=== PATIENT | male | born 1980 | race Caucasian/White ===

== ENCOUNTER 2022-12-17 11:50 | Outpatient (REF) | payer OTHER, SELFPAY | END 2022-12-17 11:51 | disposition home or self-care (01) | LOC: HO.BBR 11:50 | PROVIDERS: PCP Internal Medicine; Visit Provider General Practice | DX: D75.1 Secondary polycythemia (principal) | CPT/HCPCS: 85014; 85018; 99195 ==

== ENCOUNTER 2023-07-25 07:54 | Outpatient (REF) | payer OTHER, SELFPAY | END 2023-07-25 07:55 | disposition home or self-care (01) | LOC: HO.BBR 07:54 | PROVIDERS: PCP Internal Medicine; Visit Provider General Practice | DX: D75.1 Secondary polycythemia (principal) | CPT/HCPCS: 85018; 99195 ==

== ENCOUNTER 2023-10-24 08:03 | Outpatient (REF) | payer OTHER, SELFPAY | END 2023-10-24 08:04 | disposition home or self-care (01) | LOC: HO.BBR 08:03 | PROVIDERS: Visit Provider General Practice | DX: D75.1 Secondary polycythemia (principal) | CPT/HCPCS: 85014; 85018; 99195 ==

== ENCOUNTER 2024-04-28 09:03 | Outpatient (REF) | payer OTHER, SELFPAY | END 2024-04-28 09:04 | disposition home or self-care (01) | LOC: HO.BBR 09:03 | PROVIDERS: PCP Internal Medicine; Visit Provider General Practice | DX: D75.1 Secondary polycythemia (principal) | CPT/HCPCS: 85018; 99195 ==

== ENCOUNTER 2024-06-09 18:30 | Emergency (ER) | payer OTHER, SELFPAY ==
--- NOTE | ~2024-06-09 | XR_ITS ---
EXAMINATION: XR FOOT, LEFT CLINICAL INFORMATION: Pain, injury. COMPARISON: None available. TECHNIQUE: AP, lateral, and oblique views of the left foot. FINDINGS: No acute fracture or subluxation. No erosive changes. No unusual soft tissue calcifications or unexpected radiopaque foreign bodies. Nonspecific diffuse soft tissue thickening/swelling. XR/XR foot LT min 3V IMPRESSION: 1. No acute fracture or malalignment. 2. Nonspecific diffuse soft tissue thickening/swelling.
[2024-06-09 19:45] VITALS: BP 151/85; PULSE 80; RESP 18; TEMP 36.8; O2SAT 97; BMI 32.8
--- NOTE | 2024-06-09 19:47 | ED_ITS ---
HPI - Extremity Injury (Lower) General Chief Complaint: Extremity Injury, Lower Stated Complaint: L foot pain Time Seen by Provider: 06/09/24 21:04 Source: patient Mode of arrival: ambulatory Limitations: no limitations History of Present Illness ED Provider: IZA PRATT Narrative: 43 yo male playing soccer accidentally kicked ground with L foot since then pain and swelling limited ROM of foot. No other injuries. Did try to keep off of it. MD complaint: foot injury Onset (ago): day(s) (1) Injury: Left: foot Type of Injury: blunt Place: other (soccer field) Severity: moderate Relieving factors: nothing Exacerbating factors: weight bearing, movement and palpation Context: direct blow Associated symptoms: swelling Other symptoms: none Related Data Allergies Allergy/AdvReac Type Severity Reaction Status Date / Time bees Allergy Severe Anaphylaxis Uncoded 06/09/24 19:47 Review of Systems Review of Systems: Constitutional : No Fever, No Chills ENT/Mouth : No Ear Pain, No Hoarseness, No sore throat Eyes: No Eye Pain, No Swelling, No Redness, No Foreign Body Cardiovascular : No Chest Pain, No SOB Respiratory : No Cough, No Dyspnea Gastrointestinal : No Nausea, No Vomiting, No Diarrhea, No abdominal Pain Musculoskeletal : positive joint pain, No Myalgias, pos Joint Swelling Skin : No Skin lacerations, No rash Neuro : No Weakness, No Numbness, No Loss of Consciousness, No Dizziness, No Headache All other systems reviewed and are negative [facility] Past Medical History Attestation statement: The following information was validated with the patient. Source: old records reviewed Medical History No pertinent past medical history Social History Social History Smoked in Last 30 Days: No Use of substances other than those prescribed or required for medical reasons: No Advance Directives: No Advance Directives Information Provided: No Do you have a plan to hurt others: No Plan Physical Exam Vital Signs: Vital Signs: Last Vital Signs Temp 98.2 F 06/09/24 21:10 Pulse 77 06/09/24 21:10 Resp 17 06/09/24 21:10 BP 138/91 H 06/09/24 21:10 Pulse Ox 98 06/09/24 21:10 O2 Del Method Room Air 06/09/24 21:10 BMI result Body Mass Index 32.8 Appearance: Alert. Oriented X3. No acute distress. Eyes: Pupils equal, round and reactive to light. ENT: Pharynx normal. Neck: Normal inspection. Neck supple. CVS: Pulses normal. Respiratory: No respiratory distress. Abdomen: atraumatic Skin: Skin warm and dry. Normal skin color. . Extremities: No lower extremity edema. L foot ttp on dorsum SILT intact 2+ DP pulse achilles intact no ttp pain with movement of L foot with rotation Neuro: Oriented X 3. No motor deficit. No sensory deficit. Course Course Course Narrative: This is a Rapid Medical Examination (RME) performed by Wyatt Gonzalez PA-C in triage. Full HPI, ROS, assessment and treatment plan per primary provider in the Main ED. 43 yo male presents to the ER for evaluation of left foot pain after he accidentally kicked the floor yesterday while playing soccer. pain 7/10, not improved w/ motrin, tylenol, ice. limping and swollen since last night Plan: XR left foot Medical Decision Making Medical Decision Making [facility] Narrative: 43 yo male with no sig PMH here with c/o L foot pain after kicking soccer field at this time will need xrays he is NV intact overall not toxic - xrays ordered, nestor wrap and crutches - strain, contusion, fracture Differential Diagnosis Differential Diagnoses: The differential diagnosis associated with the presentation includes strain, contusion, fracture Independent Interpretation I performed an independent interpretation of an: Plain X-Ray (no fracture) Radiology Impression Discussion of test interpretation with radiology: I have reviewed the radiologist's reading. Prescription Management I considered prescription management with: Pain Medication Discharge Plan Discharge Clinical Impression: Foot sprain Qualifiers: Encounter type: initial encounter Laterality: left Qualified Code(s): S93.602A - Unspecified sprain of left foot, initial encounter Patient Disposition: Home, Self-Care Instructions: Foot Sprain (ED) Additional Instructions: rest ice compress elevated for 3 days use motrin or tylenol for 3 days nestor wrap for 5 days crutches for 5 days if not improved in 5 days repeat xrays with doctor return for numbness, worsening redness, swelling or any other concerns no obvious fracture on xray FINDINGS: No acute fracture or subluxation. No erosive changes. No unusual soft tissue calcifications or unexpected radiopaque foreign bodies. Nonspecific diffuse soft tissue thickening/swelling. XR/XR foot LT min 3V IMPRESSION: 1. No acute fracture or malalignment. 2. Nonspecific diffuse soft tissue thickening/swelling. Print Language: Paraguayan
[2024-06-09 21:10] VITALS: BP 138/91; PULSE 77; RESP 17; TEMP 36.8; O2SAT 98
--- NOTE | 2024-06-09 21:42 | PC.NURSE ---
Provider to bedside for primary eval, left foot wrapped with nestor wrap and crutches and crutch teaching provided by Alla PCT. Awaiting dispo.
[2024-06-09 22:15] VITALS: BP 138/91; PULSE 72; RESP 17; TEMP 36.8; O2SAT 98
== END 2024-06-09 22:16 | disposition home or self-care (01) ==
PROVIDERS: Emergency Provider Emergency Medicine; PCP Internal Medicine
DX: S93.602A Unspecified sprain of left foot, initial encounter (principal); M79.672 Pain in left foot; Y29.XXXA Contact with blunt object, undetermined intent, initial encounter; Y93.66 Activity, soccer; Y92.322 Soccer field as the place of occurrence of the external cause; Y99.8 Other external cause status
CPT/HCPCS: 73630; 99283; 99284

== ENCOUNTER 2024-11-09 08:05 | Outpatient (REF) | payer OTHER, SELFPAY | END 2024-11-09 08:06 | disposition home or self-care (01) | LOC: HO.BBR 08:05 | PROVIDERS: PCP Internal Medicine; Visit Provider General Practice | DX: D75.1 Secondary polycythemia (principal) | CPT/HCPCS: 85014; 85018; 99195 ==

== ENCOUNTER 2025-02-08 08:04 | Outpatient (REF) | payer OTHER, SELFPAY | END 2025-02-08 08:05 | disposition home or self-care (01) | LOC: HO.BBR 08:04 | PROVIDERS: PCP Internal Medicine; Visit Provider General Practice | DX: D75.1 Secondary polycythemia (principal) | CPT/HCPCS: 85014; 85018; 99195 ==

== ENCOUNTER 2025-05-19 11:06 | Outpatient (REF) | payer OTHER, SELFPAY | END 2025-05-19 11:07 | disposition home or self-care (01) | LOC: HO.BBR 11:06 | PROVIDERS: PCP Internal Medicine; Visit Provider General Practice | DX: D75.1 Secondary polycythemia (principal) | CPT/HCPCS: 85018; 99195 ==

== ENCOUNTER 2025-08-19 07:58 | Outpatient (REF) | payer OTHER, SELFPAY ==
--- OUTSIDE RECORDS SUMMARY | 2025-08-19 08:01 | XMS_ITS | Clinical Summary ---
Author Organization [facility] Address [address] [place] [id number] Phone Care Team Providers Care Press Worker Helper Name Role Phone Romeo Magana Primary Care Provider [phone] Allergies No known active allergies Medications cetirizine (ZYRTEC) 10 MG tablet Take 10 mg by mouth daily. Active fluticasone propionate (FLONASE) 50 mcg/actuation nasal spray 1 spray by Nasal route daily. Active Active Problems No known active problems Immunizations Immunization Administration Dates Next Due COVID-19 (Pre-09/16) Pfizer Vaccine, mRNA, PF ,03/12/2021 Social History Tobacco Use Types Packs/Day Years Used Date Smoking Tobacco: Former Smokeless Tobacco: Never Education Answer Date Recorded Are you interested in more education? Not on lopez e 03/22/2023 Are you concerned about learning? Not on file 03/22/2023 No 03/22/2023 No 03/22/2023 Digital Access Answer Date Recorded No 04/19/2023 No 04/19/2023 No 04/19/2023 Reliable internet access at home? Not on file 04/19/2023 Device with a working camera? Not on file Sex and Gender Information Value Date Recorded Sex Assigned at Male 02/05/2019 7:33 PM EDT Legal Sex Male 9:21 PM EDT Gender Identity Male 02/05/2019 7:33 PM EDT Sexual Orientation Straight 02/05/2019 7: 33 PM EDT Last Filed Vital Signs Vital Sign Reading Time Taken Comments Blood Pressure 149/67 02/05/2019 7:30 PM EDT Pulse 66 02/05/2019 7:30 PM EDT Temperature 36.1 C (97 F) 02/05/2019 7:30 PM EDT Respiratory Rate 18 02/05/2019 7:30 PM EDT Oxygen Saturation 98% 02/05/2019 7:30 PM EDT Inhaled Oxygen Concentration - - Weight - - Height - - Body Mass Index - - Plan of Treatment Health Maintenance Due Date Last Done Comments Adult Td,Tdap Booster 1981 LIPID PANEL 1981 DEPRESSION SCREENING 1993 SMOKING Hx and SMOKELESS TOBACCO SCREENING 1994 HEPATITIS C SCREENING 1999 HIV ONE-TIME SCREENING (18-6 5 YEARS) 1999 INFLUENZA VACCINE (#1) 2025 COVID-19 VACCINE (3 2024-2 6 season) 2025 04/02/2021, 03/12/2021 HEPATITIS A VACCINES Aged Out No long er eligible based on patient's age to complete this topic HIB VACCINES Aged Out No longer eligi ble based on patient's age to complete this topic MENINGOCOCCAL VACCINES (ACWY) Aged Out No longer eligible based on patient's age to complete this topic MENINGOCOCCAL VACCINES (B) Aged Out N o longer eligible based on patient's age to complete this topic PNEUMOCOCCAL VACCINES (0-49 years) Aged Out No longer eligible b ased on patient's age to complete this topic Medical Devices Not on file Insurance [facility] [address] [address] [place] [address] [facility] [address] [facility] PPO [facility] [employer] Care Teams Press Worker Helper Relationship Specialty Start Date End Date Romeo Magana DO [email or web address] PCP - General Internal Medicine 02/05/19 Additional Source Comments The information contained in this document represents components of the legal health record. It is not the complete legal health record.[facility]
== END 2025-08-19 07:59 | disposition home or self-care (01) ==
LOC: HO.BBR 07:58
PROVIDERS: PCP Internal Medicine; Visit Provider General Practice
DX: D75.1 Secondary polycythemia (principal)
CPT/HCPCS: 85014; 85018; 99195

== ENCOUNTER 2025-11-08 08:04 | Outpatient (REF) | payer OTHER, SELFPAY ==
--- OUTSIDE RECORDS SUMMARY | 2025-11-08 08:38 | XMS_ITS | Clinical Summary ---
Author Organization [facility] Address [address] [place] [id number] Phone Care Team Providers Care Sprinkler Irrigation Equipment Mechanic Name Role Phone Romeo Magana Primary Care Provider [phone] Allergies No known active allergies Medications cetirizine [...] topic Medical Devices Not on file Insurance [facility] [employer] [place] [employer] [place] [place] [address] [place] [address] PPO [place] [employer] [facility] [employer] Care Teams Sprinkler Irrigation Equipment Mechanic Relationship Specialty Start Date End Date Romeo Magana DO [email or web address] PCP - General Internal Medicine 02/05/19 Additional Source Comments The information contained in this document represents components of the legal health record. It is not the complete legal health record.[facility]
== END 2025-11-08 08:05 | disposition home or self-care (01) ==
LOC: HO.BBR 08:04
PROVIDERS: PCP Internal Medicine; Visit Provider General Practice
DX: D75.1 Secondary polycythemia (principal)
CPT/HCPCS: 85014; 85018; 99195